=== PATIENT | male | born 1940 | race Caucasian/White ===

== ENCOUNTER 2020-10-26 04:53 | Inpatient (IN) | payer MEDICARE, SELFPAY ==
[2016-10-17 02:48] VITALS: BMI 30.2
[2020-10-26] VITALS (9 sets, daily range): BP systolic 127–172; BP diastolic 57–69; PULSE 50–88; RESP 20–42; TEMP 36.8–38.3; O2SAT 90–95; BMI 29.9
--- NOTE | 2020-10-26 04:54 | HP.PCM_ITS ---
Problem List (1) Sepsis Status: Acute (2) Pneumonia Status: Acute History of Present Illness Date of Admission: 10/26/20 Chief Complaint: Flulike symptoms Mr. Santos Brown is an 80-year-old male with a significant history of essential hypertension; BPH who self catheterizes; polymyalgia rheumatica on chronic steroids who went to [facility] emergency department because of flulike symptoms. 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 At home he had intermittent fever with maximum temperature of about 99.7. At [facility] his heart rate was in the 50s to 60s. Respiratory rate was predominantly in the 20s. His blood pressure was stable. Patient had an objective fever with T-max of about 100.9 Fahrenheit.. His urinalysis showed protein. Also his urinalysis showed blood. Patient reports that he always have blood in his urine because he self catheterization. His D-dimer was elevated. CTPA showed mild atelectasis or early infiltrate at the lateral aspect of the left lung base. Chest x-ray showed mild left infrahilar opacities. His lactic acid was normal. His creatinine was 0.82. He had significant leukocytosis. Patient was given vancomycin and Zosyn at the Emergency department. Past Medical History Medical History: Medical History (Last Updated 10/26/20 @ 06:[address] Saurabh Martinez MD) BPH (benign prostatic hyperplasia) N40.0 PMR (polymyalgia rheumatica) M35.3 Allergies codeine Adverse Reaction (Verified 10/17/16 02:58) Nausea Home Medications: Ambulatory Orders Medication Instructions Recorded Calcium Carbonate [Tums] 500 mg PO PRN 10/26/20 Prednisone 5 mg PO DAILY 10/26/20 Zolpidem Tartrate 5 mg PO QHS 10/26/20 Surgical History: no surgical history Smoking Status: Never smoker - *Family History Maternal History Items: - - His mother from embolism Paternal History Items: Cancer - Prostate cancer and throat cancer, Stroke Review of Systems Constitutional: Reports: Chills, Fever, Malaise. Denies: Weight Change HEENT: Denies: Head Aches, Sinus Congestion, Sinus Drainage Cardiovascular: Denies: Chest Pain, Palpitations Respiratory: Reports: Shortness of Breath. Denies: Cough, Shortness of breath at rest, Sputum production Gastrointestinal: Denies: Abdominal Pain, Nausea, Vomiting Genitourinary: Reports: Frequency. Denies: Dysuria Musculoskeletal: Denies: Joint Pain, Joint Tenderness Skin: Denies: Rash, Wounds Neurological: Denies: Numbness, Tingling, Focal weakness Psychiatric: Denies: Anxiety, Depression, Homicidal Ideations, Suicidal Ideations Hematologic/ Lymphatic: Denies: Easy Bruising, Easy Bleeding VTE Information - Inpt Only VTE Present on Admission: No VTE Mechan Device Prophylaxis: SCD's VTE Pharm Prophylaxis ordered?: No Patient Problems: Active and Suspected Problems (Last Updated 10/26/20 @ 06:[address] Saurabh Martinez MD) Sepsis (Acute) Pneumonia (Acute) - Physical Exam Vitals/I&O's: Vital Signs Temp Pulse Resp BP Pulse Ox 98.3 F 50 L 20 H 148/68 H 94 10/26/20 04:32 10/26/20 04:32 10/26/20 04:32 10/26/20 04:32 10/26/20 04:32 Oxygen Delivery Method Room Air Weight: 89.2 kg Body Mass Index (BMI) 29.9 General: Alert, Oriented x3, Cooperative HEENT: Atraumatic, PERRLA, EOMI, Normocephalic Neck: Supple, No JVD, Negative Carotid Bruits Lungs: Clear to auscultation, Normal air movement Cardiovascular: Normal S1, Normal S2, Bradycardic Abdomen: Bowel Sounds Present, Soft, Non Tender Extremities: No edema, Capillary Refill Less than 3 Seconds Skin: No rashes, No breakdown Musculoskeletal: No Tenderness to Palpation of Joints or Extremities Neurological: Cranial nerves II-XII grossly intact Psych/Mental Status: Normal Affect, Appropriate Current Medications Sodium Chloride () 250 mls @ 15 mls/hr IV .[id number] PRN PRN Reason: Saline Flush Sodium Chloride () 250 mls @ 15 mls/hr IV .[id number] PRN PRN Reason: Additional IVPB Infusion Sodium Chloride (0.9% Saline Lock 10 Ml Syringe) 10 - 40 ml IV UD PRN PRN Reason: SALINE FLUSH Assessment/Plan All Active Problems (Last Updated 10/26/20 @ 06:[address] Saurabh Martinez MD) Sepsis (Acute) Pneumonia (Acute) Mr. Santos Brown is an 80-year-old male with a significant history of essential hypertension; BPH who self catheterizes; polymyalgia rheumatica on chronic steroids who went to [facility] emergency department because of flulike symptoms and found to meet SIRS criteria with T-max of 100.9; tachypnea with highest respiratory rate of 26 and white count of 16,650: And with chest x- ray finding and CT finding of left lung infiltrate. Sepsis secondary to pneumonia Gram-negative or gram-positive Lactic acid: Normal at outside hospital Fever T-max 100.9 at outside hospital. White count of 16,650 at outside hospital Chest x-ray with left infrahilar opacities. Because D-dimer was elevated at outside hospital CTPA was done at outside hospital. CTPA showed mild atelectasis or early infiltrate at the lateral aspect of the left lung base. Blood culture obtained at outside hospital, follow. Antibiotics: Vancomycin and Zosyn at outside hospital ED. Change antibiotics to ceftriaxone and azithromycin IV. IV hydration: 30 mL's per kilogram bolus at outside hospital ED. Legionella antigen screen and Strep antigen ordered Tylenol as needed for fever BPH with history of self-catheterization Declines Rodriguez catheter. Okay for patient to self catheterize at the hospital. Hypertension Blood pressure is stable in regard to his age Not on any blood pressure at this time. Trend blood pressures. Polymyalgia rheumatica Home prednisone continued DVT prophylaxis Subcutaneous Lovenox ordered. Inpatient E&M: 84089 Init Hosp L3
[2020-10-26] MEDS: 0.9% Saline Lock 10 ML Syringe IV ×2 (05:25→21:57)
--- NOTE | 2020-10-26 07:18 | RAD_ITS ---
STUDY: X-RAY CHEST REASON FOR EXAM: Male, 80 years old. pna TECHNIQUE: Single AP portable view of the chest. COMPARISON: None. FINDINGS: Poor inspiration with some bibasilar atelectasis. There is no demonstrated pleural abnormality. Normal size heart. Normal mediastinum and waldemar. Normal visualized pulmonary arteries. Normal visualized aortic arch and descending thoracic aorta. Normal visualized thoracic spine. Normal visualized ribs, clavicles, and shoulders. There is no demonstrated abnormality of the visualized soft tissue structures of the upper abdomen. RAD/Chest 1 View (Portable) IMPRESSION: Poor inspiration with some bibasilar atelectasis per Electronically Signed: Sanjiv Antony MD at 9:14 EDT Tel , Service support ,
[2020-10-26 07:19] LABS: Absolute Lymphocyte Count 0.77 X10^3/uL (0.83-4.51); Absolute Neutrophil Count 19.6 X10^3/uL (2.0-7.7); Basophil# 0.02 X10^3/uL; Basophil% 0.1 % (0-1); Eosinophil# 0.03 X10^3/uL; Eosinophils% 0.1 % (0-5); Hematocrit 38.8 % (40-54); Lymphocyte # 0.77 X10^3/ul (0.83-4.51); Lymphocyte % 3.5 % (19-41); Mean Corp Hgb Conc 28.4 g/dL (32-36); Monocyte% 6.7 % (0-10); NRBC Flagged by Analyzer 0 % (0-5); Neutrophil # 19.63 X10^3/uL (2.7-7.7); Neutrophil % 88.1 % (47-70); POSITIVE COUNT YES; Platelet Count 72 K/mm3 (150-450); RBC Distribution Width CV 17.8 % (11.6-14.6); RBC Distribution Width SD 51.6 fl (35.1-43.9); Red Blood Count 4.79 M/mm3 (4.6-6.2); White Blood Count 22.3 K/mm3 (4.4-11.0)
[2020-10-26 07:43] LABS: Anion Gap 6 (5-15); BUN 14 mg/dL (7-18); BUN/Creat Ratio 14.5 RATIO (10-20); Calcium,Total 9.4 mg/dL (8.5-10.1); Chloride 109 mmol/L (98-107); Creatinine, Serum 0.96 mg/dL (0.70-1.30); EST Glomerular Filtration Rate 80 mL/min (>60); Est Glom Filt Rate - Afr Amer 97 mL/min (>60); Estimated Creatinine Clearance 59.38 ml/min; Glucose 137 mg/dL (74-106); Potassium 4.1 mmol/L (3.5-5.1); Sodium Level 136 mmol/L (136-145)
[2020-10-26] MEDS: predniSONE 5 MG Tablet PO (08:55)
[2020-10-26] MEDS: Enoxaparin 40 MG/0.4 ML Syringe SC (10:55)
[2020-10-26] MEDS: Acetaminophen 325 MG Tablet 650 MG PO (12:09)
--- NOTE | 2020-10-26 12:15 | CASEMGMT ---
RN CM Face to Face with patient for initial transition planning/care coordination assessment. RN CM introduced self and role at [facility]. Patient lying in bed, alert and oriented. Patient willing to participate in assessment and is able to answer all questions appropriately. Care providers, pharmacy, and demographics verified. Patient wishes to discharge home, denies need for home health at this time. Patient states he has no further needs or concerns at this time. CM to follow for discharge planning needs that may arise. PCP: Sharron Specialists: none Preferred Pharmacy: [facility] Insurance: Ayah [employer] Prescription Benefit: yes Living Will/HPOA: he believes its his Litzy Brown LNOK: Living Arrangements: Patient lives with in 2 story home with bed and bath on first floor. Patient independent at home. Transportation: self/[facility] DME/HHC: Patient states he has stair lift, walker, cane, shower chair, raised toilet, and grab bars at home. Patient denies HHC Disposition Plan: Patient to discharge home with family support and follow-up plans in place. Estela CUNNINGHAMN, RN, CM
--- NOTE | 2020-10-26 12:34 | PCM.HOSP.N ---
Hospitalist Note Mr. Brown is an 80-year-old white male who presented to the emergency department in [place] on 10/26/2020 with flulike symptoms. Mr. Brown has a past medical history of hypertension, BPH which requires intermittent straight cathing, chronic thrombocytopenia, polymyalgia rheumatica for which he takes chronic steroids, and insomnia. Upon presentation he complained of fever, chills, acute on chronic myalgias, dyspnea, and the sensation for the need to urinate frequently. At home he had a T-max of 99%. His T-max here has been 100.9. In the emergency department in [place] his fever was 100.9 as well. His UA is reported as unremarkable but we will repeat this today. He had a D-dimer elevation and a CTA of his chest was performed that showed mild atelectasis or early infiltrate at the lateral aspect of the of the left lung base. A chest x-ray performed here today is suggestive of the same. We will continue ceftriaxone and azithromycin. I have added incentive spirometry and Pep therapy. I will also obtain a BNP and a procalcitonin. He has a marked leukocytosis at 22,000 but again he is on chronic steroids current dose is 5 mg daily. I see no reason to stress dose steroid him at this time as his blood pressures are stable. If his blood pressures will become more labile I would add stress dose steroids. It appears that he may have some CKD stage II based on his serum creatinine today with his estimated creatinine clearance of 80. Legionella and strep pneumo antigen was negative. Check respiratory viral panel. Supplemental oxygen as needed. He has had both of his Covid vaccines and his rapid Covid was negative. Diagnoses Sepsis secondary to suspected pulmonary source Acute hypoxic respiratory insufficiency Leukocytosis Mild anemia Chronic thrombocytopenia BPH Polymyalgia rheumatica Chronic steroid use CKD stage II Insomnia
[2020-10-26 12:58] LABS: BNP,B-Type NATRIURETIC PEPTIDE 409.1 pg/mL (0-100)
[2020-10-26 14:49] LABS: Procalcitonin 13.31 ng/mL (0.00-0.09)
[2020-10-26 16:00] LABS: Color, Urine Amber (Yellow); Glucose, Dipstick Normal (Normal); Ketone-Dipstick 15 mg/dl (Negative); Leukocyte Esterase-Dipstick 500 /ul (Negative); Nitrite-Dipstick Negative (Negative); Occult Blood-Urine 250 /ul (Negative); Protein-Dipstick 100 mg/dl (Negative); Urine Bilirubin Dipstick Negative (Negative); Urine Clarity Cloudy (Clear); Urine Urobilinogen Normal (Normal); Urine pH 6.5 (5.0 - 8.0)
[2020-10-26] MEDS: Zolpidem Tartrate 5 MG Tablet 2.5 MG PO (21:56)
[2020-10-27 01:48] LABS: M R Staph aureus DNA By PCR Negative (Negative); Probe Check PASS; Specimen Processing Control PASS
[2020-10-27 02:20] VITALS: BP 164/73; PULSE 62; RESP 24; TEMP 36.5; O2SAT 94
[2020-10-27] MEDS: Acetaminophen 325 MG Tablet 650 MG PO ×3 (02:23→20:08)
[2020-10-27 02:35] VITALS: PULSE 60; RESP 38; O2SAT 94
[2020-10-27] MEDS: Albuterol 2.5 MG/3 ML VIAL.NEB. INHALATION (02:35)
[2020-10-27 06:48] LABS: Absolute Neutrophil Count 13.4 X10^3/uL (2.0-7.7); Basophil# 0.03 X10^3/uL; Basophil% 0.2 % (0-1); Eosinophil# 0.01 X10^3/uL; Eosinophils% 0.1 % (0-5); Hematocrit 36.2 % (40-54); Hemoglobin 10.1 g/dL (13.0-16.5); Lymphocyte % 8.2 % (19-41); Mean Corp Hgb Conc 27.9 g/dL (32-36); Mean Corpuscular Hgb 22.1 pg (27.0-32.0); Monocyte% 16.5 % (0-10); NRBC Flagged by Analyzer 0 % (0-5); Neutrophil # 13.35 X10^3/uL (2.7-7.7); Neutrophil % 73.4 % (47-70); POSITIVE COUNT YES; POSITIVE DIFFERENTIAL YES; Platelet Count 68 K/mm3 (150-450); RBC Distribution Width SD 51.4 fl (35.1-43.9); Red Blood Count 4.58 M/mm3 (4.6-6.2); White Blood Count 18.2 K/mm3 (4.4-11.0)
--- NOTE | 2020-10-27 07:00 | ECHOCS_ITS ---
Reason For Study: HTN Procedure This was a 2D Doppler, Color Flow transthoracic echocardiogram. The study was technically difficult. Contrast injection was performed. Exam performed portable in patient room. Left Ventricle Normal LV size. The estimated ejection fraction is 60 %. No evidence for diastolic dysfunction. No regional wall motion abnormalities noted. Right Ventricle Normal RV size. Normal systolic function. Atria Normal left atrium. Normal right atrium. No doppler evidence for ASD. Mitral Valve There is no mitral valve stenosis. Trivial mitral valve insufficiency. Tricuspid Valve There is no tricuspid stenosis. Trivial tricuspid valve insufficiency. Unable to estimate RV systolic pressure due to insufficient tricuspid regurgitant envelope. Aortic Valve Trisinus/trileaflet aortic valve. Aortic sclerosis, no stenosis. There is no aortic stenosis. No aortic valve insufficiency. Pulmonic Valve There is no pulmonic valvular stenosis. Trivial pulmonic valve insufficiency. Great Vessels Normal aortic root. Pericardium/Pleural No pericardial effusion. Medication Diluted definity 3ml given slow IV push to enhance endocardial definition. MMode/2D Measurements & Calculations LVIDd: 3.9 cm IVSd: 1.0 cm Ao root diam: 3.7 cm LVIDs: 2.9 cm LVPWd: 0.96 cm LA dimension: 3.3 cm FS: 25.9 % LAV(MOD-bp): 55.9 ml LA A4 area: 18.8 cm2 RA A4 area: 15.5 cm2 LAV(MOD-bp) Indexed: 27.6 ml/m2 LAV(MOD-sp2): 56.5 ml LAV(MOD-sp4): 51.5 ml Time Measurements MV dec time: 0.27 sec Doppler Measurements & Calculations MV E max craig: 68.7 cm/sec Lat Peak E' Craig: 13.3 cm/sec Med Peak E' Craig: 8.5 cm/sec MV A max craig: 95.5 cm/sec E/E' lat: 5.2 E/E' med: 8.1 MV E/A: 0.72 MV V2 max: 106.5 cm/sec MV P1/2t max craig: 107.5 cm/sec Ao V2 max: 151.4 cm/sec MV max P.5 mmHg MV P1/2t: 61.0 msec Ao max P.2 mmHg MV V2 mean: 57.8 cm/sec MV dec slope: 516.2 cm/sec2 MV mean P.6 mmHg MV V2 VTI: 35.8 cm MVA(P1/2t): 3.6 cm2 LV V1 max: 128.1 cm/sec PA V2 max: 111.7 cm/sec TR max craig: 234.6 cm/sec LV V1 max P.6 mmHg TR max P.0 mmHg ECHO/Echo Complete W/ Contrast Interpretation Summary The estimated ejection fraction is 60 %. No evidence for diastolic dysfunction. Trivial mitral valve insufficiency. Contrast injection was performed. Ordering Physician: Lyla Ingram Referring Physician: Rachel Mcdermott M.D. Performed By: Zbigniew Gutierrez RCS
[2020-10-27 07:19] LABS: ALB/GLOB Ratio 0.7 RATIO (0.9-2.4); AST(SGOT) 38 U/L (15-37); Alanine Aminotransfer ALT/SGPT 24 U/L (16-61); Albumin, Serum 2.9 g/dL (3.2-5.0); Alkaline Phosphatase 72 U/L (45-117); Anion Gap 5 (5-15); BUN 14 mg/dL (7-18); BUN/Creat Ratio 16.5 RATIO (10-20); Calcium,Total 9.3 mg/dL (8.5-10.1); Chloride 105 mmol/L (98-107); Creatinine, Serum 0.85 mg/dL (0.70-1.30); EST Glomerular Filtration Rate 93 mL/min (>60); Est Glom Filt Rate - Afr Amer 112 mL/min (>60); Estimated Creatinine Clearance 67.06 ml/min; Globulin 4.3 g/dL (2.2-4.2); Glucose 100 mg/dL (74-106); Potassium 3.4 mmol/L (3.5-5.1); Protein, Total 7.2 g/dL (6.4-8.2); Sodium Level 135 mmol/L (136-145)
[2020-10-27 07:21] LABS: Differential Indicated SCAN CRITERIA MET
[2020-10-27 08:19] VITALS: BP 142/67; PULSE 59; RESP 24; TEMP 37.3; O2SAT 93
[2020-10-27] MEDS: predniSONE 5 MG Tablet PO (08:27)
[2020-10-27] MEDS: Enoxaparin 40 MG/0.4 ML Syringe SC (08:28)
[2020-10-27] MEDS: 0.9% Saline Lock 10 ML Syringe IV ×3 (08:29→22:11)
[2020-10-27] MEDS: Furosemide 40 MG/4 ML Vial IV ×2 (08:29→16:55)
[2020-10-27 08:46] LABS: Differential Comment SCANNED; Platelet Estimate MOD DEC (ADEQ); Platelet Morphology LARGE
[2020-10-27 10:14] LABS: BNP,B-Type NATRIURETIC PEPTIDE 416.4 pg/mL (0-100)
[2020-10-27 11:30] VITALS: O2SAT 92
--- NOTE | 2020-10-27 15:15 | PCM.PN.HOSP ---
Patient Problems: Active and Suspected Problems (Last Updated 10/26/20 @ 06:[address] Saurabh Martinez MD) Sepsis (Acute) Pneumonia (Acute) Subjective: States he feels fine today. Later in the day his son who lives out of town came in and indicates his father does not complain much about anything. The patient was upset he was not able to go home today. He seem to be more accepting after I explained things further. Vitals/I&O's: Vital Signs Temp Pulse Resp BP Pulse Ox 99.2 F H 59 L 24 H 142/67 H 92 10/27/20 08:19 10/27/20 08:19 10/27/20 08:19 10/27/20 08:19 10/27/20 11:30 Oxygen Delivery Method Room Air Weight: 89.2 kg Body Mass Index (BMI) 29.9 Intake and Output for Last 24 Hours 10/25/20 10/26/20 10/27/20 23:59 23:59 23:59 Intake Total 884.25 / 884.25 990 / 990 Output Total 550 / 550 1450 / 1450 Balance 334.25 / 334.25 -460 / -460 General: Alert, Oriented x3, Cooperative, No apparent distress, Well developed, Well nourished, - - Older white male sitting up in bed, appears comfortable but tachypneic HEENT: Atraumatic, PERRLA, EOMI, Normocephalic, EAC Clear Oral: Moist Mucosa, No Gingival or Mucosal Lesions/ Ulcerations, - - Thrush, Mallampati 2 Neck: Supple, No JVD, Trachea Midline, Thyroid Normal Size and Texture Lungs: No rhonchi, No wheeze, No rales, Diminished - Bilateral bases, Short of Breath, Tachypneic Cardiovascular: Regular Rhythm, Normal S1, Normal S2, No Ectopic Activity, Murmur, No rub noted, No Gallop Abdomen: Bowel Sounds Present, Soft, Non Tender, Non-Distended Extremities: No clubbing, No cyanosis, Capillary Refill Less than 3 Seconds, Edema - Trace bilateral lower extremity edema but improved, Peripheral Pulses Normal Skin: No rashes, No breakdown Musculoskeletal: No Tenderness to Palpation of Joints or Extremities, Arthritic Changes Lymphatic: No Cervical, Supraclavicular, or Inguinal Adenopathy Neurological: Cranial nerves II-XII grossly intact, Deep Tendon Reflexes 2+/4 and Symmetrical, Neuro grossly intact, Muscle tone normal, Coordination normal, - - Proximal muscle weakness-generalized Psych/Mental Status: Normal Affect, Appropriate Microbiology Past 72 Hours 10/26/20 13:30 Mucosa - Nose Respiratory Panel (PCR) - Final 10/26/20 05:15 Urine Catheter - Catheter Legionella Antigen - Final 10/26/20 05:15 Urine Catheter - Catheter Streptococcus pneumoniae Antigen (M - Final Laboratory Results 10/26/20 15:10: Urine Color Aury, Urine Clarity Cloudy, Urine pH 6.5, Ur Specific Uvalda 1.010, Urine Protein 100 H, Urine Glucose (UA) Normal, Urine Ketones 15 H, Urine Occult Blood 250 H, Urine Nitrite Negative, Urine Bilirubin Negative, Urine Urobilinogen Normal, Ur Leukocyte Esterase 500 H 10/26/20 16:08: MRSA (PCR) Negative 10/27/20 06:00: WBC 18.2 H, RBC 4.58 L, Hgb 10.1 L, Hct 36.2 L, MCV 79.0 L, MCH 22.1 L, MCHC 27.9 L, RDW Std Deviation 51.4 H, RDW Coeff of Amador 18.0 H, Plt Count 68 L, Immature Gran % (Auto) 1.600 H, Neut % (Auto) 73.4 H, Lymph % (Auto) 8.2 L, Coffee % (Auto) 16.5 H, Eos % (Auto) 0.1, Baso % (Auto) 0.2, Absolute Neuts (auto) 13.4 H, Absolute Lymphs (auto) 1.50, Nucleated RBC % 0, Differential Comment SCANNED, Diff Path Review May bharati, Platelet Estimate MOD DEC, Plt Morphology Comment LARGE 10/27/20 06:00: Sodium 135 L, Potassium 3.4 L, Chloride 105, Carbon Dioxide 25.0, Anion Gap 5, BUN 14, Creatinine 0.85, Estim Creat Clear Calc 67.06, Est GFR (MDRD) Af Amer 112, Est GFR (MDRD) Non-Af 93, BUN/Creatinine Ratio 16.5, Glucose 100, Calcium 9.3, Total Bilirubin 0.60, AST 38 H, ALT 24, Alkaline Phosphatase 72, Total Protein 7.2, Albumin 2.9 L, Globulin 4.3 H, Albumin/Globulin Ratio 0.7 L 10/27/20 06:00: B-Natriuretic Peptide 416.4 H Current Medications Acetaminophen (Acetaminophen 325 Mg Tablet) 650 mg PO Q6H PRN PRN PRN Reason: Pain Score 1-10/Temp > 100.7 F Last Admin: 10/27/20 11:47 Dose: 650 mg Documented by: Albuterol Sulfate (Albuterol 2.5 Mg/3 Ml Vial.Neb.) 2.5 mg INHALATION Q2H PRN PRN PRN Reason: Shortness of Breath/Wheezing Last Admin: 10/27/20 02:35 Dose: 2.5 mg Documented by: Enoxaparin Sodium (Enoxaparin 40 Mg/0.4 Ml Syringe) 40 mg SC DAILY [facility] Last Admin: 10/27/20 08:28 Dose: 40 mg Documented by: Sodium Chloride () 250 mls @ 15 mls/hr IV .[id number] PRN PRN Reason: Saline Flush Last Infusion: 10/26/20 10:30 Dose: 0 mls/hr Documented by: Sodium Chloride () 250 mls @ 15 mls/hr IV .[id number] PRN PRN Reason: Additional IVPB Infusion Ceftriaxone Sodium 2 gm/ (Sodium Chloride) 50 mls @ 100 mls/hr IV Q24@2200 [facility] Last Infusion: 10/27/20 00:07 Dose: Infused Documented by: Ondansetron HCl (Ondansetron 4 Mg/2 Ml Vial) 4 mg IV Q8H PRN PRN PRN Reason: NAUSEA/VOMITING Prednisone ([facility] 5 Mg [facility] Last Admin: 10/27/20 08:27 Dose: 5 mg Documented by: Sodium Chloride (0.9% Saline Lock 10 Ml Syringe) 10 - 40 ml IV UD PRN PRN Reason: SALINE FLUSH Last Admin: 10/27/20 08:29 Dose: 10 ml Documented by: Zolpidem Tartrate (Zolpidem Tartrate 5 Mg Tablet) 2.5 mg PO QHS [facility] Last Admin: 10/26/20 21:56 Dose: 2.5 mg Documented by: STROKE Vital Signs/Narrative: Vital Signs Pulse Ox 10/27/20 11:30 92 Medical Necessity - Tobacco Use Smoking Status: Never smoker Assessment/Plan All Active Problems (Last Updated 10/26/20 @ 06:[address] Saurabh Martinez MD) Sepsis (Acute) Pneumonia (Acute) Sepsis secondary to unknown source -His white count is improving with his the ceftriaxone so I will continue this at this time and he remained stable clinically otherwise -His procalcitonin was markedly elevated at 13.31--> I question whether this could be related to his polymyalgia rheumatica as well -Urine Legionella and strep pneumo antigens are negative -Discontinue azithromycin -Blood and urine cultures are pending -Patient has no sputum production or significant cough -CT/chest x-ray that was done at outside facility showed mild atelectasis versus early infiltrate in the lateral aspect of the left lung base -Respiratory viral panel is negative -Covid is negative -No further fever since yesterday -Await cultures results to drive further antibiotic therapy Acute hypoxic respiratory insufficiency -BNP is elevated -Lasix given 40 mg yesterday x1 dose and patient had an excellent response -Lower extremity edema is better today -Repeat Lasix x1 -Echo pending Mild hyponatremia -Continue to monitor -Likely related from volume status but may be related to diuretics -Repeat in a.m. Mild hypokalemia -Oral potassium 40 mEq given -Repeat in a.m. Leukocytosis -Trending down -See above -Not related to steroids Mild anemia -No signs of acute blood loss -Slight trend down hemoglobin -Continue to monitor Acute on chronic thrombocytopenia -Patient appears to have a baseline platelet level of around 70-80,000 upon review of records here -Continue to monitor with slight drop -Repeat CBC in a.m. -Continue DVT prophylaxis at this time but monitor closely BPH -Patient intermittently straight clean caths at home -Continue Rodriguez Polymyalgia rheumatica -Continue home prednisone 5 mg daily -No need for stress dose as blood pressure is stable -Unsure if this could potentially cause an elevated procalcitonin CKD stage II -Serum creatinine remained stable despite diuresis -Continue to monitor Insomnia -Continue home Ambien DVT prophylaxis -Continue enoxaparin 40 mg daily CODE STATUS -DNR CCA no intubation Inpatient E&M: [id number] [facility] Hosp L3
[2020-10-27 16:50] VITALS: BP 137/71; PULSE 56; RESP 20; TEMP 37; O2SAT 95
[2020-10-27 20:10] VITALS: BP 139/77; PULSE 60; RESP 17; TEMP 37.1; O2SAT 93
[2020-10-27] MEDS: Zolpidem Tartrate 5 MG Tablet 2.5 MG PO (22:11)
[2020-10-28] MEDS: 0.9% Saline Lock 10 ML Syringe IV ×2 (02:23→22:51)
[2020-10-28 02:26] VITALS: BP 131/78; PULSE 54; RESP 16; TEMP 36.8; O2SAT 94
[2020-10-28 07:00] VITALS: O2SAT 93
[2020-10-28 07:06] LABS: Absolute Lymphocyte Count 1.41 X10^3/uL (0.83-4.51); Absolute Neutrophil Count 7.4 X10^3/uL (2.0-7.7); Basophil# 0.03 X10^3/uL; Basophil% 0.3 % (0-1); Eosinophil# 0.08 X10^3/uL; Eosinophils% 0.8 % (0-5); Hematocrit 39.9 % (40-54); Hemoglobin 11.1 g/dL (13.0-16.5); Lymphocyte # 1.41 X10^3/ul (0.83-4.51); Lymphocyte % 13.4 % (19-41); Mean Corp Hgb Conc 27.8 g/dL (32-36); Mean Corpuscular Hgb 22.2 pg (27.0-32.0); Mean Corpuscular Volume 79.6 fL (80-94); Monocyte# 1.31 X10^3/uL; Monocyte% 12.4 % (0-10); NRBC Flagged by Analyzer 0 % (0-5); Neutrophil # 7.44 X10^3/uL (2.7-7.7); Neutrophil % 70.4 % (47-70); POSITIVE COUNT YES; Platelet Count 74 K/mm3 (150-450); RBC Distribution Width CV 18.1 % (11.6-14.6); RBC Distribution Width SD 51.3 fl (35.1-43.9); Red Blood Count 5.01 M/mm3 (4.6-6.2); White Blood Count 10.6 K/mm3 (4.4-11.0)
[2020-10-28 07:32] LABS: ALB/GLOB Ratio 0.6 RATIO (0.9-2.4); AST(SGOT) 32 U/L (15-37); Alanine Aminotransfer ALT/SGPT 24 U/L (16-61); Albumin, Serum 2.8 g/dL (3.2-5.0); Alkaline Phosphatase 78 U/L (45-117); Anion Gap 8 (5-15); BUN 15 mg/dL (7-18); BUN/Creat Ratio 17.9 RATIO (10-20); Calcium,Total 9.3 mg/dL (8.5-10.1); Chloride 101 mmol/L (98-107); Creatinine, Serum 0.84 mg/dL (0.70-1.30); EST Glomerular Filtration Rate 94 mL/min (>60); Est Glom Filt Rate - Afr Amer 114 mL/min (>60); Estimated Creatinine Clearance 67.86 ml/min; Globulin 4.7 g/dL (2.2-4.2); Glucose 115 mg/dL (74-106); Potassium 3.1 mmol/L (3.5-5.1); Protein, Total 7.5 g/dL (6.4-8.2); Sodium Level 134 mmol/L (136-145)
[2020-10-28 07:40] VITALS: BP 137/72; PULSE 58; RESP 20; TEMP 37.1; O2SAT 93
[2020-10-28] MEDS: predniSONE 5 MG Tablet PO (07:43)
--- NOTE | 2020-10-28 08:22 | PN_ITS ---
Patient Problems: Active and Suspected Problems (Last Updated 10/26/20 @ 06:[address] Saurabh Martinez MD) Sepsis (Acute) Pneumonia (Acute) Reason for Visit: Sepsis Subjective: Patient is an 80-year-old gentleman admitted with sepsis of unknown origin admitted to regular nursing floor where patient is currently being managed Objective: GENERAL: cooperative HEENT: Atraumatic; EYES; Anicteric, Normal Conjunctiva NECK; supple, normal thyroid, RESPIRATORY: Diminished to auscultation CARDIOVASCULAR: Regular S1 S2, GI: soft, normoactive bowel sounds, : No Renal angle tenderness; EXTREMITIES: No edema, no clubbing, MUSCULOSKELETAL: no muscle waisting NEURO: Awake; no lateralizing signs. SKIN: No Rash PSYCH; Flat affect Vitals/I&O's: Vital Signs Temp Pulse Resp BP Pulse Ox 98.8 F 58 L 20 H 137/72 H 93 10/28/20 07:40 10/28/20 07:40 10/28/20 07:40 10/28/20 07:40 10/28/20 07:40 Oxygen Delivery Method Room Air Weight: 89.2 kg Body Mass Index (BMI) 29.9 Intake and Output for Last 24 Hours 10/26/20 10/27/20 10/28/20 23:59 23:59 23:59 Intake Total 884.25 / 884.25 1380 / 1380 395.5 / 395.5 Output Total 550 / 550 1999 / 1999 275 / 275 Balance 334.25 / 334.25 -620 / -620 120.5 / 120.5 Microbiology Past 72 Hours 10/26/20 13:30 Mucosa - Nose Respiratory Panel (PCR) - Final 10/26/20 05:15 Urine Catheter - Catheter Legionella Antigen - Final 10/26/20 05:15 Urine Catheter - Catheter Streptococcus pneumoniae Antigen (M - Final Laboratory Results 10/27/20 06:00: Differential Comment SCANNED, Diff Path Review May foll, Platelet Estimate MOD DEC, Plt Morphology Comment LARGE 10/27/20 06:00: B-Natriuretic Peptide 416.4 H 10/28/20 05:55: WBC 10.6, RBC 5.01, Hgb 11.1 L, Hct 39.9 L, MCV 79.6 L, MCH 22.2 L, MCHC 27.8 L, RDW Std Deviation 51.3 H, RDW Coeff of Amador 18.1 H, Plt Count 74 L, Immature Gran % (Auto) 2.700 H, Neut % (Auto) 70.4 H, Lymph % (Auto) 13.4 L, [place] % (Auto) 12.4 H, Eos % (Auto) 0.8, Baso % (Auto) 0.3, Absolute Neuts (auto) 7.4, Absolute Lymphs (auto) 1.41, Nucleated RBC % 0 10/28/20 05:55: Sodium 134 L, Potassium 3.1 L, Chloride 101, Carbon Dioxide 25.0, Anion Gap 8, BUN 15, Creatinine 0.84, Estim Creat Clear Calc 67.86, Est GFR (MDRD) Af Amer 114, Est GFR (MDRD) Non-Af 94, BUN/Creatinine Ratio 17.9, Glucose 115 H, Calcium 9.3, Total Bilirubin 0.40, AST 32, ALT 24, Alkaline Phosphatase 78, Total Protein 7.5, Albumin 2.8 L, Globulin 4.7 H, Albumin/Globulin Ratio 0.6 L Current Medications Acetaminophen (Acetaminophen 325 Mg Tablet) 650 mg PO Q6H PRN PRN PRN Reason: Pain Score 1-10/Temp > 100.7 F Last Admin: 10/27/20 20:08 Dose: 650 mg Documented by: Albuterol Sulfate (Albuterol 2.5 Mg/3 Ml Vial.Neb.) 2.5 mg INHALATION Q2H PRN PRN PRN Reason: Shortness of Breath/Wheezing Last Admin: 10/27/20 02:35 Dose: 2.5 mg Documented by: Enoxaparin Sodium (Enoxaparin 40 Mg/0.4 Ml Syringe) 40 mg SC DAILY [facility] Last Admin: 10/27/20 08:28 Dose: 40 mg Documented by: Sodium Chloride () 250 mls @ 15 mls/hr IV .[id number] PRN PRN Reason: Saline Flush Last Infusion: 10/28/20 02:23 Dose: 0 mls/hr Documented by: Sodium Chloride () 250 mls @ 15 mls/hr IV .[id number] PRN PRN Reason: Additional IVPB Infusion Ceftriaxone Sodium 2 gm/ (Sodium Chloride) 50 mls @ 100 mls/hr IV Q24@2200 [facility] Last Infusion: 10/27/20 22:41 Dose: Infused Documented by: Ondansetron HCl (Ondansetron 4 Mg/2 Ml Vial) 4 mg IV Q8H PRN PRN PRN Reason: NAUSEA/VOMITING Potassium Chloride (Potassium Chloride Oral Tablet 20 Meq) 40 meq PO X1 ONE Stop: 10/28/20 08:18 Potassium Chloride (Potassium Chloride Oral Tablet 20 Meq) [facility] Prednisone (Prednisone 5 Mg Tablet) [facility] Last Admin: 10/28/20 07:43 Dose: 5 mg Documented by: Sodium Chloride (0.9% Saline Lock 10 Ml Syringe) 10 - 40 ml IV UD PRN PRN Reason: SALINE FLUSH Last Admin: 10/28/20 02:23 Dose: 10 ml Documented by: Zolpidem Tartrate (Zolpidem Tartrate 5 Mg Tablet) 2.5 mg PO QHS [facility] Last Admin: 10/27/20 22:11 Dose: 2.5 mg Documented by: STROKE Vital Signs/Narrative: Vital Signs Temp Pulse Resp BP Pulse Ox 10/28/20 07:40 98.8 F 58 L 20 H 137/72 H 93 10/28/20 07:00 93 Medical Necessity - Tobacco Use Smoking Status: Never smoker Assessment/Plan All Active Problems (Last Updated 10/26/20 @ 06:[address] Saurabh Martinez MD) Sepsis (Acute) Pneumonia (Acute) Patient is an 80-year-old gentleman admitted with sepsis of unknown origin admitted to regular nursing floor where patient is currently being managed Sepsis of unknown source ?Do suspect urinary source patient does self-catheterization at home. Was started on Rocephin WBC count trending down. Urine and blood cultures obtained on admission results pending 2. Acute respiratory insufficiency ?Suspected to be secondary to congestive heart failure with preserved ejection fraction. Patient did respond to Lasix 2D echo ordered results pending 3. Hyponatremia ?Monitor electrolyte 4. Hypokalemia ?Corrected per protocol 5. Anemia - Secondary to chronic disorder monitoring H&H and transfuse if patient becomes symptomatic or hemoglobin falls below 7 6. Chronic thrombocytopenia ?Platelet count at baseline 8. BPH ?Patient does intermittent self-catheterization at home 9. Polymyalgia rheumatica ?Patient is on prednisone did continue 10. DVT prophylaxis ?Lovenox Inpatient E&M: [id number] [facility] Hosp L2
[2020-10-28] MEDS: Potassium Chloride Oral Tablet 20 MEQ 40 MEQ PO (09:08)
[2020-10-28] MEDS: Enoxaparin 40 MG/0.4 ML Syringe SC (09:08)
[2020-10-28 13:52] VITALS: BP 148/83; PULSE 56; RESP 16; TEMP 37.1; O2SAT 94
[2020-10-28 14:28] LABS: Pathologist Review Reviewed
[2020-10-28] MEDS: Potassium Chloride Oral Tablet 20 MEQ PO (16:34)
[2020-10-28 19:24] VITALS: BP 140/72; PULSE 56; RESP 18; TEMP 37; O2SAT 95
[2020-10-28 22:49] VITALS: BP 131/73; PULSE 54; RESP 16; TEMP 37.1; O2SAT 95
[2020-10-28] MEDS: Zolpidem Tartrate 5 MG Tablet 2.5 MG PO (22:51)
[2020-10-29 02:40] VITALS: BP 149/66; PULSE 52; RESP 16; TEMP 37; O2SAT 97
[2020-10-29] MEDS: 0.9% Saline Lock 10 ML Syringe IV (02:42)
[2020-10-29 06:55] LABS: Hemoglobin 11.2 g/dL (13.0-16.5); Mean Corpuscular Hgb 22.3 pg (27.0-32.0); Mean Corpuscular Volume 79.7 fL (80-94); POSITIVE COUNT YES; POSITIVE MORPHOLOGY YES; Platelet Count 76 K/mm3 (150-450); RBC Distribution Width CV 18.1 % (11.6-14.6); RBC Distribution Width SD 51.3 fl (35.1-43.9); Red Blood Count 5.02 M/mm3 (4.6-6.2)
[2020-10-29 06:59] LABS: Differential Indicated MANUAL DIFF
[2020-10-29 07:19] LABS: Lymphocyte 15 % (19-41); Metamyelocyte 2 % (0-1); Monocyte 6 % (0-10); Neutrophil-Band 3 % (0-5); Neutrophil-Segmented 74 % (47-70); Total Cells Counted 100 (MANUAL DIFF)
[2020-10-29 07:20] LABS: ALB/GLOB Ratio 0.6 RATIO (0.9-2.4); AST(SGOT) 25 U/L (15-37); Absolute Neutrophil Count 6.2 X10^3/uL (2.0-7.7); Alanine Aminotransfer ALT/SGPT 22 U/L (16-61); Albumin, Serum 2.8 g/dL (3.2-5.0); Alkaline Phosphatase 70 U/L (45-117); Anion Gap 7 (5-15); BUN 14 mg/dL (7-18); BUN/Creat Ratio 16.4 RATIO (10-20); Calcium,Total 9.4 mg/dL (8.5-10.1); Chloride 103 mmol/L (98-107); Creatinine, Serum 0.86 mg/dL (0.70-1.30); EST Glomerular Filtration Rate 92 mL/min (>60); Est Glom Filt Rate - Afr Amer 111 mL/min (>60); Estimated Creatinine Clearance 66.28 ml/min; Globulin 4.6 g/dL (2.2-4.2); Glucose 122 mg/dL (74-106); Magnesium 2.2 mg/dL (1.6-2.6); Platelet Estimate ADEQUATE (ADEQ); Potassium 3.2 mmol/L (3.5-5.1); Protein, Total 7.4 g/dL (6.4-8.2); Red Cell Morphology NORM C+C NORMAL (NORM C&C); Sodium Level 136 mmol/L (136-145)
[2020-10-29 07:58] VITALS: O2SAT 94
--- NOTE | 2020-10-29 08:25 | DCINST_ITS ---
- Discharge Diagnoses Current Active Problems: Current Active and Chronic Problems (Last Updated 10/26/20 @ 06:[address] Saurabh Martinez MD) Sepsis (Acute) Pneumonia (Acute) You will use the following diet at home:: No restrictions Allergies/Adverse Reactions: Allergies codeine Adverse Reaction (Verified 10/17/16 02:58) Nausea Medications to take at Discharge Calcium Carbonate [Tums] 500 mg PO PRN 10/26/20 Prednisone 5 mg PO DAILY 10/26/20 Zolpidem Tartrate 5 mg PO QHS 10/26/20 Potassium Chloride Oral Tablet [K-Dur] 20 meq PO BIDCM #20 tablet 10/29/20 The following prescriptions were given: Potassium Chloride Oral Tablet [K-Dur] 20 meq PO BIDCM #20 tablet Transmission Status: Pending to [facility] Primary Care Physician: Rachel Mcdermott MD [Primary Care Provider] - Please follow up with your Primary Care Physician in: in 1 week Test Results: Test results from this visit will be discussed in further detail at your follow- up appointment, if applicable. Proposed Discharge Date: 10/29/20
--- NOTE | 2020-10-29 08:36 | PCM.DC.SUM ---
Discharge Date and Diagnosis - Problem List Patient Problems: Active and Suspected Problems (Last Updated 10/26/20 @ 06:[address] Saurabh Martinez MD) Sepsis (Acute) Date of Admission: 10/26/20 Date of Discharge: 10/29/20 - Primary Discharge Diagnosis Acute Problems: Active Problems (Last Updated 10/26/20 @ 06:[address] Saurabh Martinez MD) Sepsis (Acute) Hospital Course and Treatment Imaging Results: Clinical Impression(s) from Imaging Studies Chest X-Ray 10/26/20 07:18 IMPRESSION: Poor inspiration with some bibasilar atelectasis per Electronically Signed: Sanjiv Antony MD at 9:14 EDT Tel , Service support , Echocardiogram 10/27/20 07:00 Interpretation Summary The estimated ejection fraction is 60 %. No evidence for diastolic dysfunction. Trivial mitral valve insufficiency. Contrast injection was performed. Ordering Physician: Lyla Ingram Referring Physician: Rachel Mcdermott M.D. Performed By: Zbigniew Gutierrez RCS Summary of Care Provided: Patient is an 80-year-old gentleman admitted with sepsis of unknown origin admitted to regular nursing floor where patient is currently being managed Sepsis of unknown source ?Do suspect urinary source patient does self-catheterization at home. Was started on Rocephin WBC count trending down. Urine and blood cultures obtained on admission results pending -Cultures all came back negative. 2. Acute respiratory insufficiency ?Suspected to be secondary to acute congestive heart failure with preserved ejection fraction. Patient did respond to Lasix 2D echo ordered results pending ?Echo demonstrated EF of 60% 3. Hyponatremia ?Monitor electrolyte 4. Hypokalemia ?Corrected per protocol 5. Anemia - Secondary to chronic disorder monitoring H&H and transfuse if patient becomes symptomatic or hemoglobin falls below 7 6. Chronic thrombocytopenia ?Platelet count at baseline 8. BPH ?Patient does intermittent self-catheterization at home 9. Polymyalgia rheumatica ?Patient is on prednisone did continue 10. DVT prophylaxis ?Lovenox Patient Problems: Active and Suspected Problems (Last Updated 10/26/20 @ 06:[address] Saurabh Martinez MD) Sepsis (Acute) Objective: GENERAL: cooperative HEENT: Atraumatic; EYES; Anicteric, Normal Conjunctiva NECK; supple, normal thyroid, RESPIRATORY: Diminished to auscultation CARDIOVASCULAR: Regular S1 S2, GI: soft, normoactive bowel sounds, : No Renal angle tenderness; EXTREMITIES: No edema, no clubbing, MUSCULOSKELETAL: no muscle waisting NEURO: Awake; no lateralizing signs. SKIN: No Rash PSYCH; Flat affect - Physical Exam Vitals/I&O's: Vital Signs Temp Pulse Resp BP Pulse Ox 98.6 F 52 L 16 149/66 H 97 10/29/20 02:40 10/29/20 02:40 10/29/20 02:40 10/29/20 02:40 10/29/20 02:40 Oxygen Delivery Method Room Air Weight: 89.2 kg Body Mass Index (BMI) 29.9 Intake and Output for Last 24 Hours 10/27/20 10/28/20 10/29/20 23:59 23:59 23:59 Intake Total 1380 / 1380 1994.5 / 1994.5 850.25 / 850.25 Output Total 1999 1450 / 1450 650 / 650 Balance -620 / -620 545.5 / 545.5 200.25 / 200.25 Microbiology Past 72 Hours 10/27/20 07:20 Blood Culture (Wb) - Left Hand Blood Culture - Preliminary No growth in 48 hours. 10/27/20 07:15 Blood Culture (Wb) - Anticubital Left Blood Culture - Preliminary No growth in 48 hours. 10/26/20 15:10 Urine Catheter - Rodriguez Urine Culture - Preliminary Culture exhibits no growth. 10/26/20 13:30 Mucosa - Nose Respiratory Panel (PCR) - Final 10/26/20 05:15 Urine Catheter - Catheter Legionella Antigen - Final 10/26/20 05:15 Urine Catheter - Catheter Streptococcus pneumoniae Antigen (M - Final Laboratory Results 10/27/20 06:00: Diff Path Review Reviewed 10/29/20 06:00: WBC 8.0, RBC 5.02, Hgb 11.2 L, Hct 40.0, MCV 79.7 L, MCH 22.3 L, MCHC 28.0 L, RDW Std Deviation 51.3 H, RDW Coeff of Amador 18.1 H, Plt Count 76 L, Neut % (Auto) Not Reportable, Absolute Neuts (auto) 6.2, Absolute Lymphs (auto) 1.20, Total Counted 100, Neutrophils % (Manual) 74 H, Band Neutrophils % 3, Lymphocytes % (Manual) 15 L, Monocytes % (Manual) 6, Metamyelocytes % 2 H, Diff Path Review May foll, Platelet Estimate ADEQUATE, RBC Morphology NORM C+C 10/29/20 06:00: Sodium 136, Potassium 3.2 L, Chloride 103, Carbon Dioxide 26.0, Anion Gap 7, BUN 14, Creatinine 0.86, Estim Creat Clear Calc 66.28, Est GFR (MDRD) Af Amer 111, Est GFR (MDRD) Non-Af 92, BUN/Creatinine Ratio 16.4, Glucose 122 H, Calcium 9.4, Magnesium 2.2, Total Bilirubin 0.30, AST 25, ALT 22, Alkaline Phosphatase 70, Total Protein 7.4, Albumin 2.8 L, Globulin 4.6 H, Albumin/Globulin Ratio 0.6 L Current Medications Acetaminophen (Acetaminophen 325 Mg Tablet) 650 mg PO Q6H PRN PRN PRN Reason: Pain Score 1-10/Temp > 100.7 F Last Admin: 10/27/20 20:08 Dose: 650 mg Documented by: Albuterol Sulfate (Albuterol 2.5 Mg/3 Ml Vial.Neb.) 2.5 mg INHALATION Q2H PRN PRN PRN Reason: Shortness of Breath/Wheezing Last Admin: 10/27/20 02:35 Dose: 2.5 mg Documented by: Enoxaparin Sodium (Enoxaparin 40 Mg/0.4 Ml Syringe) 40 mg SC DAILY [facility] Last Admin: 10/28/20 09:08 Dose: 40 mg Documented by: Sodium Chloride () 250 mls @ 15 mls/hr IV .[id number] PRN PRN Reason: Saline Flush Last Infusion: 10/29/20 02:42 Dose: 0 mls/hr Documented by: Sodium Chloride () 250 mls @ 15 mls/hr IV .[id number] PRN PRN Reason: Additional IVPB Infusion Ceftriaxone Sodium 2 gm/ (Sodium Chloride) 50 mls @ 100 mls/hr IV Q24@2200 [facility] Last Infusion: 10/28/20 23:21 Dose: Infused Documented by: Ondansetron HCl (Ondansetron 4 Mg/2 Ml Vial) 4 mg IV Q8H PRN PRN PRN Reason: NAUSEA/VOMITING Potassium Chloride (Potassium Chloride Oral Tablet 20 Meq) [facility] Last Admin: 10/28/20 16:34 Dose: 20 meq Documented by: Prednisone (Prednisone 5 Mg Tablet) [facility] Last Admin: 10/28/20 07:43 Dose: 5 mg Documented by: Sodium Chloride (0.9% Saline Lock 10 Ml Syringe) 10 - 40 ml IV UD PRN PRN Reason: SALINE FLUSH Last Admin: 10/29/20 02:42 Dose: 10 ml Documented by: Zolpidem Tartrate (Zolpidem Tartrate 5 Mg Tablet) [facility] Last Admin: 10/28/20 22:51 Dose: 2.5 mg Documented by: Discharge Diet: No Restrictions Discharge Activity: Return to Normal Activity Home Medications: Medications to take at Discharge Calcium Carbonate [Tums] 500 mg PO PRN 10/26/20 Prednisone 5 mg PO DAILY 10/26/20 Zolpidem Tartrate 5 mg PO QHS 10/26/20 Potassium Chloride Oral Tablet [K-Dur] 20 meq PO BIDCM #20 tablet 10/29/20 Following Prescriptions Were Given to Patient: Potassium Chloride Oral Tablet [K-Dur] 20 meq PO BIDCM #20 tablet Transmission Status: Pending to [facility] Primary Care Physician: Rachel Mcdermott MD [Primary Care Provider] - Please follow up with your Primary Care Physician in: in 1 week Disposition: Home Minutes spent on discharge:: 35 Patient Condition:: Stable Medical Necessity - Tobacco Use Smoking Status: Never smoker Meaningful Use Info Meaningful Use Diagnoses (Choose all that apply): None applicable Inpatient E&M: [id number] [facility] Hosp
[2020-10-29] MEDS: Potassium Chloride Oral Tablet 20 MEQ PO (09:19)
[2020-10-29] MEDS: predniSONE 5 MG Tablet PO (09:19)
--- NOTE | 2020-10-29 10:42 | PHA.DC.MC ---
Pharmacy Service has performed discharge medication reconciliation and counseling for this patient. 1. POTASSIUM CHLORIDE 20MEQ PO BIDCM X 10 DAYS The patient's discharge medication list was reviewed for discrepancies and discrepancies were resolved. Home Medications Calcium Carbonate [Tums] 500 mg PO PRN 10/26/20 Prednisone 5 mg PO DAILY 10/26/20 Zolpidem Tartrate 5 mg PO QHS 10/26/20 Potassium Chloride Oral Tablet [K-Dur] 20 meq PO BIDCM #20 tablet 10/29/20 The patient was counseled on the following discharge medications and changes in medications for homegoing were reviewed. The Reason for Use, instructions for use, and potential side effects were reviewed for all new medications. The patient's questions regarding all of their medications were answered. The patient was able to verbally demonstrate an understanding of their discharge medications.
--- NOTE | 2020-10-29 10:54 | CASEMGMT ---
Addendum entered by Krista Jenkins 10/29/20 11:41: Received tc back from Beckie at [facility] who states they can accept pt. Notified pt and son of this. No further needs at this time. Original Note: RN DEJUAN notified that pt son would like to speak to CM. In to pt room, son Kaleb present. Pt states that [facility] owes him hours and he wants to be set up for this for his who has dementia at home. He states they started working with [facility]. States his son and dtr from out of [place] had to fly in due to this hospitalization to care for and he does not want that to happen again. Made pt aware that this CM could set him up for skilled intermittent care through [facility] for him. Made him aware this CM could not set up services for . Pt is SBA and did not receive therapy at hospital. Made aware that SN could do disease teaching and med education. Pt and son agreeable. Patient was provided a list of [facility] providers including quality and resource use data and consistent with the patient?s preferred geographic region, medical needs, and insurance network. The patient?s preferred provider [facility]. TC to Beckie intake at [facility] and made referral. Awaiting acceptance.
[2020-10-30 13:22] LABS: Pathologist Review Reviewed
== END 2020-10-29 12:30 | disposition home or self-care (01) | DRG 195 ==
PROVIDERS: Internal Medicine; Admitting Provider Hospitalist; PCP Internal Medicine; Visit Provider Internal Medicine
DX: J18.9 Pneumonia, unspecified organism (principal); M35.3 Polymyalgia rheumatica; R06.89 Other abnormalities of breathing; R09.02 Hypoxemia; D63.8 Anemia in other chronic diseases classified elsewhere; D69.6 Thrombocytopenia, unspecified; E87.6 Hypokalemia; G47.00 Insomnia, unspecified; N40.0 Benign prostatic hyperplasia without lower urinary tract symptoms; I12.9 Hypertensive chronic kidney disease with stage 1 through stage 4 chronic kidney disease, or unspecified chronic kidney disease; N18.2 Chronic kidney disease, stage 2 (mild); Z79.52 Long term (current) use of systemic steroids
CPT/HCPCS: 36415; 71045; 80048; 80053; 81002; 83735; 83880; 84145; 85025; 87040; 87086; 87449; 87633; 87641; 93306; 94640; 94667; 94668; 99251; J7050; Q9957; A4216; C8929; G0463; J0696; J1940